=== PATIENT | male | born 1990 | race Caucasian/White ===

== ENCOUNTER 2018-01-24 11:53 | Emergency (ER) | payer OTHER, SELFPAY ==
[2018-01-24 11:54] VITALS: BP 122/77; PULSE 70; RESP 16; TEMP 36.8; O2SAT 100; BMI 28.1
--- NOTE | 2018-01-24 12:56 | ED.VISSUMM ---
- ER Visit Summary Date of Service: 01/24/18 Chief Complaint: Finger laceration History of Present Illness: The patient is a 27 M who presents with a laceration to his right long finger. This occurred at work. He cut it on a metal bucket. He denies any paresthesias weakness or loss of function. He denies any other injuries. Pain is sharp. Pain is moderate. Physical Examination: Afebrile vitals unremarkable There is a 2 cm laceration of the distal right long finger near the distal interphalangeal joint flexion and extension are intact normal sensation light touch brisk capillary refill No respiratory distress Heart regular rate Alert Test Results: Not indicated Emergency Department Course and Treatment: Patient was anesthetized with a digital block using 6 cc of 1% lidocaine. Good anesthesia was achieved. Wound was irrigated with sterile saline and explored. There is no tendon laceration. Wound was closed with 5 simple interrupted 40 nonabsorbable sutures. Patient instructed on localized wound care. He will follow-up with [facility]. He was discharged home. Treatment Plan: [] Disposition: Discharge Impression: Right long finger laceration This note was generated with [employer] dictation software. It may contain incorrect words, spelling, and punctuation that were not noted in review of the chart prior to signing ED Disposition - Plan for ED Patient: Chief Complaint: Laceration Referrals: Care Physician,No Primary [Primary Care Provider] -
--- NOTE | 2018-01-24 12:58 | ED.DEP ---
ED Disposition - Plan for ED Patient: Chief Complaint: Laceration Instructions: ED Laceration Hand Referrals: Care Physician,No Primary [Primary Care Provider] - [facility] PHYSICIANS] -
[2018-01-24 13:26] VITALS: PULSE 78; RESP 14; O2SAT 97
== END 2018-01-24 13:30 | disposition home or self-care (01) ==
LOC: ED 12:39
PROVIDERS: Emergency Provider Emergency Medicine
DX: S61.212A Laceration without foreign body of right middle finger without damage to nail, initial encounter (principal); W26.8XXA Contact with other sharp object(s), not elsewhere classified, initial encounter; Y93.89 Activity, other specified; Y92.89 Other specified places as the place of occurrence of the external cause; Y99.0 Civilian activity done for income or pay
CPT/HCPCS: 12001; 99284

== ENCOUNTER 2020-03-20 07:39 | Emergency (ER) | payer BC, SELFPAY ==
[2020-03-20 07:41] VITALS: BP 129/72; PULSE 117; RESP 16; TEMP 36.9; O2SAT 96; BMI 31.8
--- NOTE | 2020-03-20 08:06 | ED.VIS.FLU ---
History of Present Illness Chief Complaint: Fever Informant: Patient Narrative: Patient presenting for evaluation secondary to a fever. Patient tells me that today he developed fever as high as 103. This associated with body aches and a generalized headache. He does report that he has been dealing with a mild cough recently that he attributed mainly to allergies and has been taking [id number] allergy medication. He denies any shortness of breath. Denies any sore throat, nausea vomiting, diarrhea. He still maintained his appetite no loss of taste. He denies any sick contacts. He is otherwise healthy up-to-date on vaccines. He denies any skin rashes or neck stiffness associated with this. No abdominal pain. Review of systems otherwise negative. Past Medical History - Allergies and Home Meds Allergies/Adverse Reactions: Allergies No Known Allergies Allergy (Verified 03/20/20 07:44) Primary Care Physician: Care Physician,No Primary [Primary Care Provider] - Past Medical History: None Surgical History: noncontributory Lives: Spouse/ Significant Other Smoking Status: Never smoker Alcohol: None Drugs: None Review of Systems All systems negative except as indicated General: Reports: Fever, Malaise Cardiovascular: Denies: Chest pain, Palpitations Respiratory: Denies: Dyspnea, Cough, Dyspnea on exertion Gastrointestinal: Denies: Abdominal pain, Nausea, Vomiting, Diarrhea, Melena, Hematochezia Genitourinary: Denies: Dysuria, Hematuria, Frequency Skin: Denies: Rash Neurological: Reports: Headache Physical Exam Vital Signs/Narrative: Vital Signs Temp Pulse Resp BP Pulse Ox 03/20/20 07:41 98.4 F 117 H 16 129/72 H 96 Inital Vital Signs reviewed: Yes General: Well nourished, Well developed Head: Normocephalic, Atraumatic Eyes: Perrl, EOMI ENT: Moist mucous membranes, - - No posterior pharyngeal erythema or exudates noted Neck: Supple, Nontender, - - No meningismus Cardiovascular: Regular rhythm, No murmurs, Tachycardia - Minimal Respiratory: No distress, CTA bilaterally Abdomen: Soft, Nontender, Nondistended, Normal bowel sounds Back: Nontender, Normal Inspection Extremities: Nontender, No edema Skin: Normal color, No rash Neurological: Alert, Oriented x3, Cranial nerves II-XII grossly intact, Normal Strength, Normal Sensation Psychological: Normal affect Diagnostic/Tx/Re-eval - Medical Decision Making Patient presented secondary to a febrile illness. He has stable vital signs in the emergency department, room air pulse ox 96%, he has no undue other underlying significant medical issues. No evidence of bacterial nidus of infection on physical exam. I do not feel that there is any indication for chest x-ray at this time. No indication for lab work other than coronavirus testing. Patient was recommended to quarantine until he receives his results, he was recommended conservative management measures. Patient understands signs and symptoms for which to return. ED Disposition - Plan for ED Patient: Disposition: Home or Assisted Living Diagnosis: Febrile illness, acute, Suspected COVID-19 virus infection Instructions: ED FLU Adult Additional Instructions: Follow-up with your primary care physician as needed
[2020-03-20 08:34] VITALS: TEMP 38.7
--- NOTE | 2020-03-20 08:36 | ED.RN ---
pt given [facility] e care information with m number, also given covid 19 packet
[2020-03-20 08:52] VITALS: PULSE 104; TEMP 38.4; O2SAT 94
== END 2020-03-20 08:53 | disposition home or self-care (01) ==
PROVIDERS: Emergency Provider Emergency Medicine
DX: R50.9 Fever, unspecified (principal); Z20.828 Contact with and (suspected) exposure to other viral communicable diseases; R51 Headache; R05 Cough
CPT/HCPCS: 87635; 94799; 99282; U0003

== ENCOUNTER 2021-07-14 14:31 | Emergency (ER) | payer BC, SELFPAY ==
[2021-07-14 14:32] VITALS: BP 132/83; PULSE 117; RESP 18; TEMP 37.3; O2SAT 97; BMI 33.5
--- NOTE | 2021-07-14 15:35 | RAD_ITS ---
STUDY: X-RAY CHEST REASON FOR EXAM: Male, 30 years old. SOB TECHNIQUE: PA and lateral views of the chest. COMPARISON: None. FINDINGS: Airspace disease in the left lower lobe. There is no demonstrated pleural abnormality. Normal size heart. Normal mediastinum and amira. Normal visualized pulmonary arteries. Normal visualized aortic arch and descending thoracic aorta. Normal visualized thoracic spine. Normal visualized ribs, clavicles, and shoulders. There is no demonstrated abnormality of the visualized soft tissue structures of the upper abdomen. RAD/Chest PA and Lateral IMPRESSION: Left lower lobe airspace disease suggesting pneumonia. Electronically Signed: Eliseo Russell MD (Brooks) at 16:14 EST , Service support ,
--- NOTE | 2021-07-14 16:37 | EX.ED.VIS.UR ---
HPI HPI - URI History of Present Illness Chief Complaint: Shortness of Breath Narrative Narrative: 30-year-old male on day 4 of Covid symptoms. He tested positive today with a home test. Patient states that he noted his pulse ox was 90 at home and this is why he came to the emergency room. He complains of fever, chills, body aches. No loss of taste or smell. He states he was not vaccinated for COVID-19 because he does not do well with vaccinations in general. Patient denies any medical problems. ROS ROS ED Constitutional Constitutional ED: Reports chills and fever(s) Eyes Eyes: Denies blurry vision or diplopia ENT ENT ED: Reports rhinorrhea Cardiovascular Cardiovascular: Denies chest pain or palpitations Respiratory/Chest Respiratory/Chest: Reports cough and dyspnea Gastrointestinal Gastrointestinal: Denies abdominal pain, nausea or vomiting Genitourinary Genitourinary ED: Denies dysuria or hematuria Musculoskeletal Musculoskeletal: Reports myalgias; Denies arthralgias, back pain or neck pain Integumentary Denies abscess or rash Neurologic Neurologic: Reports headache(s); Denies paresthesias or weakness PFSH PFSH Medical History no medical history Home Medications ondansetron HCl [Zofran] 4 mg PO Q8H PRN #20 tab 07/14/21 [Rx Last Taken Unknown] Allergy/AdvReac Type Severity Reaction Status Date / Time No Known Allergies Allergy Verified 07/14/21 14:33 Surgical History no surgical history Social History Smoking Status: Never smoker EXAM Physical Exam Const Vital Signs: 07/14/21 14:32 07/14/21 16:49 07/14/21 18:34 Temperature 99.2 F H Temperature Source Temporal Pulse Rate 117 H 105 H 101 H Respiratory Rate 18 20 H 20 H Respiratory Effort Normal Non-Labored Respiratory Depth Normal Respiratory Pattern Normal Blood Pressure 132/83 H Blood Pressure Mean 99 Pulse Ox 97 94 96 Oxygen Delivery Method Room Air Room Air Positive well nourished General Appearance ED: NAD; Negative for pallor HEENT Reports moist mucous membranes normocephalic and atraumatic Eyes PERRL and EOMs intact bilaterally Neck supple and no meningeal signs Resp normal respiratory effort and clear to auscultation bilaterally Auscultation: Negative for rales, rhonchi or wheezes Cardio Rate: tachycardic Rhythm: regular rhythm Neuro oriented x3, CN's II-XII intact bilaterally and no sensory deficits noted Sensorium / Orientation: alert Motor Exam: strength 5/5 throughout Psych mental status grossly normal Skin General Skin Exam: Negative for jaundice or pallor MDM MDM MDM Narrative Medical decision making narrative: Patient presented with Covid symptoms on day 4 because he states his pulse ox was 90 at home. His initial O2 sat here was 97% on room air. I personally ambulated him in the room for over a minute and his pulse ox did not drop below 94. Upon leaving the room he was 98%. Patient had a home test for COVID-19 and therefore there is not one in the system. I offered the patient monoclonal antibodies and he is unsure whether he would want them or not. I did discuss with him that I did in order to order the monoclonal antibodies for him that I would have to have a positive test documented. In order to do this he would have to have a test here then I could refer him for the monoclonal antibodies. He states he is unsure if he wants monoclonal antibodies and wants to discuss this with his . I will order the test and the monoclonal antibodies based on his decision making. He does not require oxygen. His chest x-ray on my interpretation shows a small left lower lobe infiltrate consistent with his diagnosis of COVID-19. I do not believe he needs blood work or imaging. Patient did decide to be tested for Covid and was positive in the ER. I will refer him for the monoclonal antibodies at his request. Patient is to monitor his pulse oximeter at home and return for any new or worsening symptoms. Impression: 1. COVID-19 pneumonitis Radiography Diagnostic Testing: Clinical Impression(s) from Imaging Studies Chest X-Ray 07/14/21 15:35 IMPRESSION: Left lower lobe airspace disease suggesting pneumonia. Electronically Signed: Eliseo Russell MD ([place]) at 16:14 EST , Service support , Discharge Plan Triage Chief Complaint: Shortness of Breath ED Provider: Willi Crooks Dx/Rx/DC Orders Instructions: Coronavirus Disease 2019 (COVID-19): Caring for Yourself or Others Prescriptions: New ondansetron HCl [Zofran] 4 mg tablet 4 mg PO Q8H PRN (Reason: nausea and vomiting) Qty: 20 RF: 0 Other Ambulatory Orders: COVID Outpatient Monoclonal Antibody Referral (Routine) Timeframe: 1 Day Facility: [facility] - Location: [facility] Ordered By: Dr. Willi Crooks Primary Care Provider: Care Physician,No Primary Referrals: Sven Guajardo MD [STAFF PHYSICIAN] - As soon as possible Care Physician,No Primary [Primary Care Provider] - Disposition Disposition: Home, Self Care Discharge Date/Time: 07/14/21 18:35
[2021-07-14 16:49] VITALS: PULSE 105; RESP 20; O2SAT 94
[2021-07-14 18:34] VITALS: PULSE 101; RESP 20; O2SAT 96
== END 2021-07-14 18:35 | disposition home or self-care (01) ==
PROVIDERS: Emergency Provider Student in an Organized Health Care Education/Training Program
DX: U07.1 COVID-19 (principal); J12.82 Pneumonia due to coronavirus disease 2019
CPT/HCPCS: 71046; 87426; 94760; 99282

== ENCOUNTER 2021-07-15 17:33 | Outpatient (CLI) | payer BC, SELFPAY ==
[2021-07-15 17:48] VITALS: BP 142/80; PULSE 86; RESP 16; TEMP 37.1; O2SAT 96; BMI 33.7
[2021-07-15] MEDS: 0.9% Saline Lock 10 ML Syringe IV (18:02)
[2021-07-15 18:33] VITALS: BP 120/98; PULSE 86; RESP 16; TEMP 37.1; O2SAT 98
[2021-07-15 19:33] VITALS: BP 128/87; PULSE 80; RESP 16; TEMP 37.1; O2SAT 96
== END 2021-07-15 19:33 | disposition home or self-care (01) ==
LOC: MS3OUT 17:33 → MS3 17:34
PROVIDERS: Referring Provider Nurse Practitioner Adult Health; Visit Provider Nurse Practitioner Adult Health
DX: Z23 Encounter for immunization (principal); U07.1 COVID-19
CPT/HCPCS: J7050; M0245; Q0245; A4216